=== PATIENT | female | born 1950 | race Caucasian/White ===

== ENCOUNTER 2017-01-22 06:00 | Emergency (ER) | payer OTHER, BC ==
[~2017-01-22] VITALS: Ht 170.2 cm; Wt 69.5 kg
[~2017-01-22 06:00] MED LIST: PROPRANOLOL HCL20 MG PO; PROPYLTHIOURACI50 M1 PO
[2017-01-22 07:21] LABS: ADD MIUA? YES; BILIRUBIN NEGATIVE; BLOOD SMALL; COLOR STRAW ((YELLOW)); GLUCOSE (STRIP) NEGATIVE; KETONES NEGATIVE; LEUKOCYTES NEGATIVE; NITRITE NEGATIVE; PROTEIN (STRIP) NEGATIVE; SPECIFIC GRAVITY 1.004 (1.000-1.030); UROBILINOGEN 0.2 MG/DL (0.2-1.0)
[2017-01-22 07:25] LABS: BACTERIA NONE SEEN /HPF; EPITHELIAL CELLS NONE SEEN /HPF; MUCUS NONE SEEN /LPF; RED BLOOD CELLS 0-5 /HPF (0-5); WHITE BLOOD CELLS 0-5 /HPF (0-5)
[2017-01-22 07:28] LABS: HEMATOCRIT 42.2 % (36.0-46.0); MCHC 35.1 G/DL (30.0-36.0); MCV 91.3 FL (83-99); MEAN PLAT.VOLUME 10.3 uM^3 (9.5-12.4); PLATELET COUNT 179 K/uL (156-360); RBC DIS.WIDTH-CV 11.9 % (11.8-14.6); RBC DIS.WIDTH-SD 40.1 % (39-53); RED BLOOD COUNT 4.62 M/uL (3.80-5.20); WHITE BLOOD COUNT 6.9 K/uL (4.1-10.2)
[2017-01-22 07:51] LABS: ANION GAP 10 MEQ/L (2-14); CHLORIDE 109 MEQ/L (99-109); GFR ESTIMATE (CALCULATED) > 59 mL/min/; GLUCOSE 100 mg/dL (70-99); POTASSIUM 4.2 MEQ/L (3.7-5.4); SAMPLE HEMOLYSIS CHECK 2; SAMPLE ICTERIC CHECK 0; SAMPLE LIPEMIA CHECK 0; SODIUM 142 MEQ/L (136-147); UREA NITROGEN (BUN) 15 mg/dL (9-23)
[2017-01-22] MEDS ORDERED: ANORO ELLIPTA1 EACH IH (08:07)
[2017-01-22] MEDS ORDERED: FLUTICASONE PRO16 GM BOTH NARES (08:07)
[2017-01-22] MEDS ORDERED: METHIMAZOLE5 MG PO (08:07)
[2017-01-22] MEDS ORDERED: QVAR 80 MCG IN7.3 GM IH (08:07)
[2017-01-22] MEDS ORDERED: DOXYCYCLINE HY100 MG PO (08:07)
[2017-01-22] MEDS ORDERED: MONTELUKAST SOD10 MG PO (08:07)
[2017-01-22] MEDS ORDERED: LORTAB 5-325 M1 EACH PO (13:36)
[2017-01-22] MEDS ORDERED: ZOFRAN ODT4 MG PO (13:36)
[2017-01-22 14:47] VITALS: BP 168/82
== END 2017-01-22 14:47 | disposition home or self-care (01) ==
LOC: EME 06:00
PROVIDERS: Physician Assistant Medical
DX: M47.26 Other spondylosis with radiculopathy, lumbar region (principal); M51.34 Other intervertebral disc degeneration, thoracic region; E05.00 Thyrotoxicosis with diffuse goiter without thyrotoxic crisis or storm; B19.20 Unspecified viral hepatitis C without hepatic coma; K72.90 Hepatic failure, unspecified without coma; Z88.0 Allergy status to penicillin; Z87.891 Personal history of nicotine dependence
CPT/HCPCS: 72156; 72157; 72158; 80048; 81003; 85027; 99281; 99285; J1200; J1720; J2270; J2405; J2930; J7040; S0028

== ENCOUNTER 2017-01-24 13:45 | Emergency (ER) | payer OTHER, BC ==
[~2017-01-24] VITALS: Ht 170.2 cm; Wt 69.5 kg
[~2017-01-24 13:45] MED LIST changes: +ANORO ELLIPTA1 EACH IH; +DOXYCYCLINE HY100 MG PO; +FLUTICASONE PRO16 GM BOTH NARES; +LORTAB 5-325 M1 EACH PO; +METHIMAZOLE5 MG PO; +MONTELUKAST SOD10 MG PO; +QVAR 80 MCG IN7.3 GM IH; +ZOFRAN ODT4 MG PO
[2017-01-24] MEDS ORDERED: PERCOCET 5/31 TABLET PO (16:27)
[2017-01-24] MEDS ORDERED: MOTRIN600 MG PO (16:27)
[2017-01-24] MEDS ORDERED: PROMETHAZINE HC25 M1 PO (16:27)
[2017-01-24] MEDS ORDERED: PHENERGAN25 MG PR (16:27)
[2017-01-24 16:39] VITALS: BP 160/95
== END 2017-01-24 16:42 | disposition home or self-care (01) ==
LOC: EME 13:45
DX: M54.32 Sciatica, left side (principal); K75.9 Inflammatory liver disease, unspecified; E05.00 Thyrotoxicosis with diffuse goiter without thyrotoxic crisis or storm; F17.200 Nicotine dependence, unspecified, uncomplicated; Z88.0 Allergy status to penicillin; Z91.041 Radiographic dye allergy status
CPT/HCPCS: 99281; 99283; J1885; Q0169